=== PATIENT | male | born 1985 | race Caucasian/White ===

== ENCOUNTER 2024-06-25 08:10 | Emergency (ER) | payer OTHER, SELFPAY ==
[2024-06-25 08:20] VITALS: BP 123/91; PULSE 89; RESP 18; TEMP 36.6; O2SAT 98; BMI 25.5
--- NOTE | 2024-06-25 08:34 | ED_ITS ---
HPI - General Adult General: Chief complaint: General Medical Stated complaint: heroin withdrawal Time Seen by Provider: 06/25/24 08:26 History of Present Illness: This patient is a 39 year old presenting requesting help with heroin withdrawal. He says that he was clean for several years, but started using again. He is from [place] and is just here visiting. He has previously been on suboxone and is interested in getting back on it. He doesn't know where to go around here to find a suboxone clinic. He says that he had vomiting and diarrhea that is improved now, and he is having body aches and insomnia. He is restless and has a hard time sitting still. He denies any other complaints. Physical Exam Const: COMMON NORMALS: no acute distress, patient oriented x3, no limitations and alert GENERAL APPEARANCE: cooperative and comfortable HENMT: HEAD & SCALP: normal to inspection FACE & SINUS: normal facial exam Eye: GENERAL EYE: appearance normal, both eyes and all related structures Neck/C-Spine: COMMON NORMALS: supple, no meningeal signs and no JVD Chest: COMMONS NORMALS: normal inspection of the chest Resp: COMMON NORMALS: normal respiratory effort, No use of accessory muscles and clear to auscultation bilaterally AUSCULTATION: clear to auscultation bilaterally Cardio: COMMON NORMALS: no JVD, regular rate, regular rhythm and No murmurs pr esent (Cardio) RATE: regular rate RHYTHM: regular rhythm GI: COMMON NORMALS: Normal to inspection, nondistended, normoactive bowel sounds present, Soft to palpation and non-tender INSPECTION: Yes normal to inspection AUSCULTATION: Yes normoactive bowel sounds PALPATION: Yes Soft to palpation Back/Pelvis: COMMON NORMALS: thoracic and lumbar spine normal to inspection Extremity: COMMON NORMALS: normal to inspection Neuro: COMMON NORMALS: patient oriented x3, moves all extremities, no focal motor deficits and no sensory deficits noted SENSORIUM/ORIENTATION: Yes alert MENINGEAL SIGNS: Yes no meningeal signs Psych: COMMON NORMALS: mental status grossly normal, cooperative and normal affect Skin: COMMON NORMALS: no rashes or lesions noted and turgor normal GENERAL SKIN EXAM: no rashes or lesions noted and turgor normal Course Vital Signs: Vital signs: Vital Signs Temperature 97.8 F 06/25/24 08:20 Pulse Rate 79 06/25/24 09:12 Respiratory Rate 18 06/25/24 08:20 Blood Pressure 129/75 06/25/24 09:12 Pulse Oximetry 96 06/25/24 09:12 Oxygen Delivery Me thod Room Air 06/25/24 08:20 MDM - General Adult Medical Decision Making Patient is requesting suboxone and this was ordered in the ED. However I am not aware of any clinics in [place] and provided him several options in [place]. No radiology studies performed this visit Discharge Plan Discharge Patient Disposition: Home Clinical Impression: Heroin abuse, Heroin withdrawal Condition: Stable Discharge Orders: Discharge ED (Routine); Ordered 06/25/24 Ordered By: Christel Hylton Patient Instructions: Opioid Safety, Pain Management Activity Restrictions/Additional Instructions: For ongoing suboxone treatment you will most likely need to go to [place]. [facility] or [facility]. Print Language: Latvian Coding Level of Care Code ED Photography Coordinator for Susan Mccollum
[2024-06-25 09:12] VITALS: BP 129/75; PULSE 79; O2SAT 96
[2024-06-25] MEDS: buprenorphine-naloxone 4-1 mg Film 1 EACH SUBLINGUAL (09:12)
== END 2024-06-25 09:13 | disposition home or self-care (01) ==
PROVIDERS: Emergency Provider Emergency Medicine
DX: F11.13 Opioid abuse with withdrawal (principal)
CPT/HCPCS: 99283; J0573